=== PATIENT | male | born 1995 | race Two or more races ===

== ENCOUNTER 2018-01-20 16:50 | Emergency (ER) | payer MEDICAID ==
[~2018-01-20] VITALS: Ht 177.8 cm; Wt 84.4 kg
[2018-01-20 17:01] VITALS: BP 144/81
[2018-01-20] MEDS ORDERED: TETANUS-DIPTH-ACEL PERTUSSIS 0.5ML SYRG IM ONE (20:30)
[2018-01-20] MEDS ORDERED: cefTRIAXone SOD 1,000 MG VL IM ONE (20:30)
[2018-01-20] MEDS ORDERED: IBUPROFEN 800 MG TAB PO ONE (21:30)
== END 2018-01-20 21:48 | disposition home or self-care (01) ==
LOC: ER 17:00
DX: S01.511A Laceration without foreign body of lip, initial encounter (principal); Z86.718 Personal history of other venous thrombosis and embolism; W54.0XXA Bitten by dog, initial encounter; Y93.89 Activity, other specified; Y99.8 Other external cause status; Y92.410 Unspecified street and highway as the place of occurrence of the external cause
CPT/HCPCS: 12013; 90471; 90715; 96372; 99283; J0696

== ENCOUNTER → 2019-10-06 | Emergency (ER) | payer MEDICAID ==
[~2019-10-06] VITALS: Ht 177.8 cm; Wt 90.7 kg
[2019-10-06 20:27] VITALS: BP 118/77
== END | disposition home or self-care (01) ==
LOC: ER 20:13
DX: J03.90 Acute tonsillitis, unspecified (principal); H66.92 Otitis media, unspecified, left ear; Q87.2 Congenital malformation syndromes predominantly involving limbs

== ENCOUNTER 2023-05-07 13:30 | Emergency (ER) | payer MEDICAID ==
[~2023-05-07] VITALS: Ht 177.8 cm; Wt 100.0 kg
[2023-05-07 13:51] VITALS: BP 119/66; PULSE 120; RESP 20; TEMP 99.5; O2SAT 95
[2023-05-07] MEDS ORDERED: NAP500T PO (16:19)
[2023-05-07] MEDS ORDERED: AMOX500T3 PO (16:19)
[2023-05-07] MEDS ORDERED: LIDO2SOL26 MT (16:19)
[2023-05-07] MEDS: DexAMETHasone SOD PHOS 10MG/1ML VIAL INJ IM ONE (16:36)
[2023-05-07] MEDS: KETOROLAC TROMETH 60MG/2ML VIAL IM ONE (16:37)
== END 2023-05-07 16:46 | disposition home or self-care (01) ==
LOC: ER 13:30
DX: J02.9 Acute pharyngitis, unspecified (principal); Z79.2 Long term (current) use of antibiotics; Z79.899 Other long term (current) drug therapy
CPT/HCPCS: 96372; 99284; J1100; J1885

== ENCOUNTER 2023-06-25 10:53 | Emergency (ER) | payer MEDICAID ==
[~2023-06-25] VITALS: Ht 177.8 cm; Wt 101.0 kg
[~2023-06-25 10:53] MED LIST: AMOX500T3 PO; LIDO2SOL26 MT; NAP500T PO
[2023-06-25] MEDS ORDERED: IBUP-1454 PO (11:42)
[2023-06-25] MEDS ORDERED: ACET500T58 PO (11:42)
[2023-06-25] MEDS: DexAMETHasone SOD PHOS 10MG/1ML VIAL INJ IM ONE (11:54)
[2023-06-25 12:26] VITALS: BP 130/79; PULSE 87; RESP 18; TEMP 99.1; O2SAT 98
== END 2023-06-25 12:26 | disposition home or self-care (01) ==
LOC: EDUNIT# 10:53 → ER 10:53
DX: B34.9 Viral infection, unspecified (principal)
CPT/HCPCS: 96372; 99283; J1100

== ENCOUNTER 2023-09-22 17:28 | Emergency (ER) | payer MEDICAID ==
[~2023-09-22] VITALS: Ht 180.3 cm; Wt 98.8 kg
[~2023-09-22 17:28] MED LIST changes: +ACET500T58 PO; +IBUP-1454 PO
[2023-09-22 20:44] VITALS: BP 120/63; PULSE 91; RESP 18; TEMP 98.2; O2SAT 96
[2023-09-22] MEDS: KETOROLAC TROMETH 30 MG/ML 1ML VIAL IM ONE (21:38)
== END 2023-09-22 22:02 | disposition home or self-care (01) ==
LOC: ER 17:28
DX: B34.9 Viral infection, unspecified (principal); Z79.899 Other long term (current) drug therapy
CPT/HCPCS: 96372; 99283; J1885

== ENCOUNTER 2024-08-10 19:28 | Emergency (ER) | payer MEDICAID ==
[~2024-08-10] VITALS: Ht 177.8 cm; Wt 94.8 kg
--- NOTE | 2024-08-10 20:02 | ED.PDOC ---
SOB-HPI HPI Comments 28y M who presents to the ED for chief complaint of flu-like symptoms. Pt states he has been having headache, cough, rhinorrhea, phlegm, chills and vision disturbances for the past 3 days. 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 Pt otherwise is [id number] and no noted changes in vison, speech or gait are noted. Pt denies any other symptoms at this time. Chief Complaint: Flu like Time Seen by MD: 20:07 Primary Care Provider: UNKNOWN Reviewed notes: Medications, Allergies Information Source: Patient Mode of Arrival: Ambulatory Past Medical History PAST MEDICAL HISTORY: Denies Surgical History: Denies all surgeries Family History Family History: Unknown Social History Smoker: Non-Smoker Alcohol: Rarely Drugs: Denies Drug Use Lives In: Home Constitutional: reports: chills; denies: diaphoresis, fatigue, fever, malaise, sweats, weakness, others EENTM: reports: throat pain; denies: blurred vision, double vision, ear bleeding, ear discharge, ear drainage, ear pain, ear ringing, eye pain, eye redness, hearing loss, mouth pain, mouth swelling, nasal discharge, nose bleeding, nose congestion, nose pain, photophobia, tearing, throat swelling, voice changes, others Respiratory: reports: cough; denies: hemoptysis, orthopnea, SOB at rest, s hortness of breath, SOB with excertion, stridor, wheezing, others Cardiovascular: denies: chest pain, dizzy spells, diaphoresis, Dyspnea on exertion, edema, irregular heart beat, left arm pain, lightheadedness, palpitations, PND, syncope, others Gastrointestinal: denies: abdomen distended, abdominal pain, blood streaked bowels, constipated, diarrhea, dysphagia, difficulty swallowing, hematemesis, melena, nausea, poor appetite, poor fluid intake, rectal bleeding, rectal pain, vomiting, others Genitourinary: denies: burning, dysuria, flank pain, frequency, hematuria, in continence, penile discharge, penile sore, pain, testicle pain, testicle swelling, urgency, others Neurological: reports: headache; denies: dizziness, fainting, left sided numbness, left sided weakness, numbness, paresthesia, pre-existing deficit, right sided numbness, right sided weakness, seizure, speech problems, tingling, tremors, weakness, others Musculoskeletal: denies: back pain, gout, joint pain, joint swelling, muscle pain, muscle stiffness, neck pain, others Integumetry: denies: bruises, change in color, change in hair/nails, dryness, laceration, lesions, lumps, rash, wounds, others Allergic/Immunocompromised: denies: Difficulty Healing, Frequent Infections, Hives, Itching, others Hematologic/Lymphatic: denies: anemia, blood clots, easy bleeding, easy bruising, swollen glands, others Endocrine: denies: excessive hunger, excessive sweating, excessive thirst, excessive urination, flushing, intolerance to cold, intolerance to heat, unexplained weight gain, unexplained weight loss, others Psychiatric: denies: anxiety, bipolar disorder, depression, hopeless, panic disorder, schizophrenia, sleepless, suicidal, others All Other Systems: Reviewed and Negative Physical Exam General Appearance: No Apparent Distress, Normal HEENT: Normal ENT Inspection, Pharynx Normal, TMs Normal Neck: Full Range of Motion, Non-Tender, Normal, Normal Inspection Respiratory: Chest Non-Tender, Lungs Clear, No Accessory Muscle Use, No Respiratory Distress, Normal Breath Sounds Cardiovascular: No Edema, No JVD, No Murmur, No Gallop, Normal Peripheral Pulses, Regular Rate/Rhythm Breast Exam: Deferred Gastrointestinal: No Organomegaly, Non Tender, No Pulsatile Mass, Normal Bowel Sounds, Soft Genitalia: Deferred Pelvic: Deferred Rectal: Deferred Extremities: No calf tenderness, Normal capillary refill, Normal inspection, Normal range of motion, Non-tender, No pedal edema Musculoskeletal : Apperance: Normal Neurologic: Alert, foundry worker II-XII nml as Tested, No Motor Deficits, Normal Affect, Normal Mood, No Sensory Deficits Cerebellar Function: Normal Reflexes: Normal Skin: Dry, Normal Color, Warm Lymphatic: No Adenopathy Was a procedure done? Was a procedure done?: No Differential Dx Differential Diagnosis: Bronchitis, Pharyngitis, URI Comments viral syndrome, COVID, Influenza A and B, X-Ray, Labs, Meds, VS Vital Signs Date Time Temp Pulse Resp B/P (MAP) Pulse Ox O2 Delivery O2 Flow Rate FiO2 08/10/24 19:39 98.0 101 20 134/80 (98) 96 98.0 Lab Test 08/10/24 19:44 Range/Units Influenza Type A Antigen Negative Negative Influenza Type B Antigen Negative Negative SARS-CoV-2 Antigen (Rapid) Negative NEGATIVE X-Ray, Labs, Meds, VS Comment Imaging: X-rays and CT scans were reviewed and interpreted by this provider, imaging shows no fractures and no pathological disease. Pending radiology review. Laboratory: Labs reviewed and interpreted by this provider. No significant abnormalities noted. Patient has prior medical visits reviewed. Med reconciliation performed Vital signs reviewed Time of 1ST Reevaluation: 20:40 Reevaluation 1ST: Unchanged Patient Education/Counseling: Diagnosis, Treatment, Need For Follow Up (Follow up with the PCP in the next 2-4 days. Return to the emergency department in the next 24 hours if symptoms worsen.) Family Education/Counseling: No Family Present SEPSIS Sepsis Screen Date sepsis recognized/suspect: Aug 10, 2024 Time Sepsis recognized/suspect: 1934 Recent Procedure: No On Antibiotic Therapy: No Respiratory Rate >20: No Heart Rate >90: Yes Temp<36 C (96.8 F) or >38.3 C: No SBP <90 or MAP <65 mmHG: No New Acute Mental Status Change: No Is the patient on CPAP, BIPAP,: No Orders/Vitals/Labs Vital Signs Date Time Temp Pulse Resp B/P (MAP) Pulse Ox O2 Delivery O2 Flow Rate FiO2 08/10/24 19:39 98.0 101 20 134/80 (98) 96 98.0 Departure 1 Departure Time of Disposition: 21:00 Impression: Primary Impression: Viral syndrome Additional Impression: Pharyngitis Qualified Codes: J02.0 - Streptococcal pharyngitis Disposition: HOME / SELF CARE / HOMELESS Condition: Fair e-Prescriptions Ibuprofen Micronized (Ibuprofen) 800 Mg Tab 800 MG PO TID PRN, #40 TAB Prov: IMELDA RODGERSP 08/10/24 Amoxicillin Trihydrate (Amoxicillin) 875 Mg Tab 1 TAB PO BID for 7 Days, #14 TAB Prov: IMELDA RODGERS REUSE TECHNICIAN 08/10/24 Discharged With: Self Critical Care Note Critical Care Time?: No Stability Stability form required: No Heart Score Heart Score: Heart Score Response (Comments) Value History N/A 0 EKG N/A 0 Age N/A 0 Risk Factors N/A 0 Troponin N/A 0 Total 0 I personally scribed for IMELDA RODGERS ([email or web address]) on 08/10/24 at 20:02. Electronically submitted by Sumi Durant ([facility] [place] I personally scribed for IMELDA RODGERSP ([email or web address]) on 08/10/24 at 20:09. Electronically submitted by Sumi Durant ([email or web address]). I personally scribed for IMELDA RODGERSP ([place]) on 08/10/24 at 20:12. Electronically submitted by Sumi Durant ([facility] [place] [place] IMELDA RODGERS Aug 10, 2024 20:02
[2024-08-10 20:31] LABS: COVID19 ANTIGEN SOFIA FIA NEGATIVE (NEGATIVE); Rapid Influenza A Negative (Negative); Rapid Influenza B Negative (Negative)
[2024-08-10] MEDS ORDERED: IBUP-1455 PO (21:00)
[2024-08-10] MEDS ORDERED: AMOX875T3 PO (21:00)
[2024-08-11 00:51] VITALS: BP 123/80; TEMP 98.2
[2024-08-11] MEDS: methylPREDNISolone SOD SUCC 125 MG/2 ML VL IM ONE (01:02)
[2024-08-11] MEDS: KETOROLAC TROMETH 30 MG/ML 1ML VIAL IM ONE (01:02)
[2024-08-11 01:05] VITALS: PULSE 63; RESP 20; O2SAT 97
== END 2024-08-11 01:07 | disposition home or self-care (01) ==
LOC: ER 19:28
DX: B34.9 Viral infection, unspecified (principal); J02.0 Streptococcal pharyngitis; F10.90 Alcohol use, unspecified, uncomplicated; Z20.822 Contact with and (suspected) exposure to COVID-19; Y90.9 Presence of alcohol in blood, level not specified
CPT/HCPCS: 36415; 87426; 87804; 96372; 99284; J1885; J2919